=== PATIENT | female | born 1960 | race Caucasian/White ===

== ENCOUNTER 2019-04-06 13:39 | Emergency (ER) | payer OTHER, SELFPAY ==
[2019-04-06 13:40] VITALS: BP 149/81; PULSE 89; RESP 24; TEMP 36.9; O2SAT 100
--- NOTE | 2019-04-06 14:20 | ED.SOB ---
HPI - SOB/Dyspnea General Chief Complaint: Shortness of Breath/Dyspnea Stated Complaint: SHORTNESS OF BREATH AND DIZZNESS Time Seen by Provider: 04/06/19 14:17 Source: patient and family Mode of arrival: Ambulatory Limitations: no limitations History of Present Illness HPI Narrative: This is a 58-year-old female comes to the emergency department with complaint of shortness of breath. Patient states she has had symptoms intermittently for months. She states typically it is a couple minutes maybe 20 minutes at the most but today when she woke up from sleep she felt the same way and has not been having any improvement. Patient states she will often feel dizzy or lightheaded with these episodes but she has never had any syncope. She feels like she can't catch her breath or there is a spasm and she has to sit up straight to try to take a bigger breath. She states her chest will feel tight Um but that she does not have pressure. She denies any pain. She states she can sometimes get nauseated. She states she is and easy vomit are did have several episodes last week. She also states that from a GI standpoint she will alternate between constipation and diarrhea regularly. She felt her urine output was a little bit decreased. She has noticed the markings of her socks or little bit more prominent. She states she has felt tingly and numb all over in her extremities. She did have a recent drive in return 2 days ago from [place] after seeing her daughter delivered an infant prematurely and was in the NICU but is having good outcomes. She does take gabapentin and Cymbalta but states she regularly forgets to take these. Therefore fibromyalgia as well as depression patient last saw Dr. Finnegan in June of 2018 for depression and anxiety. And she states about a year ago or more she had vertigo testing because of chronic dizziness. Today she tried to set appointment with her primary care and was encouraged to come to the ER and when she tried calling the nursing hotline for her insurance they also told her to come to the ER. Related Data Home Medications Medication Instructions Recorded Confirmed [HAIR, SKIN, NAILS] 1 tab PO QDAY #0 09/09/16 07/09/18 [green tea] #0 09/09/16 07/09/18 multivitamin [Multiple Vitamins] 1 tab PO QDAY #0 09/09/16 07/09/18 denosumab 60 mg/mL subcutaneous 60 mg SUBCUT [id number] 12/21/17 07/09/18 syringe Previous Rx's Medication Instructions Recorded estradiol 0.5 gram VAGINAL 2XW #1 tube 01/12/18 gabapentin 300 mg capsule 1,200 mg PO BEDTIME #360 cap 06/22/18 duloxetine 30 mg capsule,delayed 30 mg PO DAILY #90 cap 03/28/19 release duloxetine 60 mg capsule,delayed 60 mg PO DAILY #90 cap 03/28/19 release lorazepam [Ativan] 0.5 mg PO DAILY PRN #5 tab 04/06/19 Allergies Allergy/AdvReac Type Severity Reaction Status Date / Time No Known Drug Allergies Allergy Verified 04/06/19 14:05 Review of Systems Review of Systems ROS Unobtainable: All systems reviewed & are unremarkable except as noted in HPI and below Patient History Medical History Abnormal CXR (chest x-ray) (Resolved 1999) Abnormal Pap smear of cervix (Resolved) Anemia (Resolved) Anxiety (Chronic) Bloating (Chronic) C. difficile colitis (Resolved 2014) Concussion (Resolved 11/2015) Cranial pain (Chronic) Depression (Chronic) Fractures (Resolved) Hayfever (Chronic) Kidney stones (Chronic) Leukopenia (Resolved) Measles (Resolved) Melanoma (Resolved 1994) Migraines (Chronic) Neck pain (Chronic) Vertigo (Resolved) Surgical History Anesthesia (Resolved) History of ankle surgery (Resolved 1987) History of intestinal surgery (Resolved 2014) Hx of breast implants, bilateral (Resolved) Status post appendectomy (Resolved 2013) Status post breast reduction (Resolved) Status post delivery (Resolved 1981) Status post delivery (Resolved 1989) Status post hernia repair (Resolved 2013) Status post wrist surgery (Resolved 2008) Family History Brother Age: 73 Macular degeneration Mother Diabetes mellitus Essential hypertension Cerebrovascular accident (CVA), unspecified mechanism Ovarian cancer, unspecified laterality Grandfather Heart disease Heart attack Sister Age: 74 Malignant neoplasm of female breast, unspecified laterality, unspecified site of breast Essential hypertension Sister Age: 64 Essential hypertension Father Lung cancer Grandfather No problems noted. Grandmother No problems noted. Grandmother No problems noted. Social History marital status: number of children: 2 occupational status: other (retired) Smoking Status: Never smoker alcohol intake: current (social) substance use type: does not use Smoking Status: Never smoker Substance Use Type: does not use Exam Narrative Exam Narrative: GEN: well nourished, thin female, alert and oriented x 3, patient appears to be in moderate distress. Patient appears anxious she will calm during our discussion and then become more anxious appearing and then calm again. Her shaking resolves when she is focused on our conversation. She is not diaphoretic. HEENT: Atraumatic, pupils are equal round reactive to light, extraocular movements are intact, nares are clear, Throat is clear without any exudates, erythema, tonsillar enlargement or uvular deviation HEART: Regular rate and rhythm without murmur, clicks, rubs. Pulses are equal in upper and lower extremities LUNGS:Lungs clear to auscultation, no wheezes, rales, crackles, chest moves symmetrically, tachypnea. Patient is able to speak in full sentences. ABD:bowel sounds normal, soft, non-tender, no guarding, rebound, rigidity, no masses noted, no hepatosplenomegaly :No CVA tenderness MSCL: Non-tender, no muscle atrophy, muscles strength 5/5 upper and lower extremities, full range of motion, normal gait NEURO:CN 2-12 intact, sensation normal. SKIN: No rash, no erythema or other skin changes. Initial Vital Signs Initial Vital Signs: Vital Signs Temperature 98.4 F 04/06/19 13:40 Pulse Rate 89 04/06/19 13:40 Respiratory Rate 24 04/06/19 13:40 Blood Pressure 149/81 H 04/06/19 13:40 Pulse Oximetry 100 04/06/19 13:40 Scores HEART Score Heart Score history: Slightly Suspicious Heart Score EKG: Non-Specific repolarization disturbance Heart Score Age: 45-64 years old Heart Score risk factors: No known risk factors Course Orders Ordered: ED Orders 04/06/19 13:44 EKG-12 Lead Stat Measure peak expiratory flow ONCE RT Consult Eval and Treat Now 04/06/19 14:39 XR chest 1V Stat 04/06/19 15:09 Complete Blood Count AUTO DIFF Stat Comprehensive Metabolic Panel Stat D Dimer Stat NT-proBNP (BNP-Adult 18+) Stat Partial Thromboplastin Time Stat Prothrombin Time INR Stat Thyroid Stimulating Hormone Stat Troponin & CK Cardiac Panel Stat 04/06/19 15:27 Lactate (Lactic Acid) Stat 04/06/19 18:05 Free T4, Direct Thyroxine Stat Discontinued Medications Sodium Chloride (Normal Saline 0.9%) 1,000 mls @ 1,000 mls/hr IV BOLUS ONE Stop: 04/06/19 17:41 Last Infusion: 04/06/19 18:08 Dose: 0 mls/hr Documented by: Admin: 04/06/19 16:55 Dose: 1,000 mls/hr Documented by: TUCKER Lorazepam (Ativan) 1 mg PO NOW ONE Stop: 04/06/19 14:40 Last Admin: 04/06/19 14:53 Dose: 1 mg Documented by: ANNA Potassium Chloride (Potassium Chloride) 40 meq PO NOW ONE Stop: 04/06/19 15:52 Last Admin: 04/06/19 16:34 Dose: 40 meq Documented by: ANNA Vital Signs Vital signs: Vital Signs - 8 hr 04/06/19 13:40 04/06/19 15:30 04/06/19 15:34 Temperature 98.4 F Pulse Rate 89 79 80 Respiratory Rate 24 24 19 Blood Pressure 149/81 H Blood Pressure [Right Arm] 115/90 115/90 Pulse Oximetry 100 100 100 04/06/19 16:35 04/06/19 18:09 Temperature Pulse Rate 80 70 Respiratory Rate 15 18 Blood Pressure Blood Pressure [Right Arm] 118/72 112/78 Pulse Oximetry 98 98 MDM - SOB/Dyspnea Lab Data Attestation: I reviewed the patient's lab results. Result diagrams: 04/06/19 15:09 04/06/19 15:09 Labs: Lab Results 04/06/19 04/06/19 04/06/19 Range/Units 15:09 15:09 15:09 WBC 5.0 (4.5-11.0) X10^3/uL RBC 4.33 (4.0-5.2) X10^6/uL Hgb 14.5 (12.0-16.0) g/dL Hct 41.8 (36-46) % MCV 96.6 (80-100) fL MCH 33.5 (26-34) PG MCHC 34.7 (30-36) % RDW 13.1 (11.6-14.8) % Plt Count 201 (150-400) X10^3/uL Neut % (Auto) 44.2 L (50-75) % Lymph % (Auto) 43.0 H (25-40) % [place] % (Auto) 9.6 (3-14) % Eos % (Auto) 1.9 L (2-4) % Baso % (Auto) 1.3 (0-2) % Neut # (Auto) 2200 (9641-9272) /uL Lymph # (Auto) 2100 (1317-8771) /uL [place] # (Auto) 500 (0-900) /uL Eos # (Auto) 100 (0-450) /uL Baso # (Auto) 100 (0-100) /uL PT (10.1-12.7) SECONDS INR (0.9-1.3) APTT (26.4-36.2) SECONDS D-Dimer < 200 (<230) ng/mL Sodium 143 (137-145) mmol/L Potassium 3.1 L (3.4-5.1) mmol/L Chloride 109 H (98-107) mmol/L Carbon Dioxide 26 (22-32) mmol/L BUN 14 (7-17) mg/dL Creatinine 0.80 (0.52-1.04) mg/dL Estimated GFR > 60.0 (>60) mL/min BUN/Creatinine Ratio 17.5 (6-22) Glucose 102 (80-110) mg/dL Lactate (0.7-2.1) mmol/L Calcium 11.6 H (8.4-10.2) mg/dL Total Bilirubin 0.5 (0.2-1.3) mg/dL AST 26 (14-36) IU/L ALT 14 (<35) IU/L Alkaline Phosphatase 36 L (38-126) U/L Total Creatine Kinase 54 (30-135) U/L CK-MB (CK-2) TNP CK-MB (CK-2) Rel Index TNP Troponin I < 0.012 (0.01-0.034) ng/mL NT-Pro-B Natriuret Pep 193 H (<125) pg/mL Total Protein 7.5 (6.3-8.2) g/dL Albumin 4.6 (3.5-5.0) g/dL Globulin 2.9 (1.7-4.1) g/dL Albumin/Globulin Ratio 1.6 (1.0-2.8) TSH (0.47-4.68) uIU/mL 04/06/19 04/06/19 04/06/19 Range/Units 15:09 15:09 15:27 WBC (4.5-11.0) X10^3/uL RBC (4.0-5.2) X10^6/uL Hgb (12.0-16.0) g/dL Hct (36-46) % MCV (80-100) fL MCH (26-34) PG MCHC (30-36) % RDW (11.6-14.8) % Plt Count (150-400) X10^3/uL Neut % (Auto) (50-75) % Lymph % (Auto) (25-40) % [place] % (Auto) (3-14) % Eos % (Auto) (2-4) % Baso % (Auto) (0-2) % Neut # (Auto) (4374-1116) /uL Lymph # (Auto) (1741-4526) /uL [place] # (Auto) (0-900) /uL Eos # (Auto) (0-450) /uL Baso # (Auto) (0-100) /uL PT 11.1 (10.1-12.7) SECONDS INR 1.0 (0.9-1.3) APTT 29 (26.4-36.2) SECONDS D-Dimer (<230) ng/mL Sodium (137-145) mmol/L Potassium (3.4-5.1) mmol/L Chloride (98-107) mmol/L Carbon Dioxide (22-32) mmol/L BUN (7-17) mg/dL Creatinine (0.52-1.04) mg/dL Estimated GFR (>60) mL/min BUN/Creatinine Ratio (6-22) Glucose (80-110) mg/dL Lactate 1.8 (0.7-2.1) mmol/L Calcium (8.4-10.2) mg/dL Total Bilirubin (0.2-1.3) mg/dL AST (14-36) IU/L ALT (<35) IU/L Alkaline Phosphatase (38-126) U/L Total Creatine Kinase (30-135) U/L CK-MB (CK-2) CK-MB (CK-2) Rel Index Troponin I (0.01-0.034) ng/mL NT-Pro-B Natriuret Pep (<125) pg/mL Total Protein (6.3-8.2) g/dL Albumin (3.5-5.0) g/dL Globulin (1.7-4.1) g/dL Albumin/Globulin Ratio (1.0-2.8) TSH 4.90 H (0.47-4.68) uIU/mL Imaging Data Chest x-ray: Radiologist's Impression: [address] [address] XRay Report Signed Patient: Cady Johnson#: [id number] : 9Acct:[id number] Age/Sex: 58 / FDate of Service: 04/06/19 Loc: ED Accession Number: [id number] Procedure: XR chest 1V Ordering Provider: Wendie Little D.O. PROCEDURE: XR CHEST 1V INDICATIONS: Shortness of breath, intermittent for months TECHNIQUE: One view of the chest was acquired. COMPARISON: [facility], CHEST 1 VIEW, 04/18/2017, 12:05. FINDINGS: Surgical changes and devices: None. Lungs and pleura: Lungs are clear, yet hyperexpanded. No pleural effusions or pneumothorax. Mediastinum: Mediastinal contours appear normal. Heart size is normal. Bones and chest wall: No suspicious bony lesions. A likely bone island can be seen involving the left humeral head. Mild dextroconvex scoliotic curvature is noted. Overlying soft tissues appear unremarkable. IMPRESSION: Hyperexpanded lungs, without an acute cardiopulmonary process identified. Dictated by: Víctor Hutton M.D. on 04/06/2019 at 15:28 Approved by: Víctor Hutton M.D. on 04/06/2019 at 15:29 ECG Data Attestation: I personally reviewed and interpreted this ECG as follows: Interpretation: Sinus rhythm rate 83, P are 165 QRS of 109 and QTC of 403. Nonspecific ST change. Possibly some depression V4 and V6 but not appreciated in V 5. No elevation noted. Patient has a prior EKG from 09/09/2016 which appears similar except for the changes in V4 and V5. MDM Narrative Medical decision making narrative: Discussed with patient Um suspect she may be having some anxiety but based on her she does have risk factor for cardiac causes. Examination she seems to calm during discussion and does seem is anxious. She does have a history of depression and has seen Dr. Finnegan for this in the past. EKG shows nonspecific change, chest x-ray is negative. CBC shows slightly elevated lymphocyte count but otherwise normal CBC. Coags are normal including a negative D-dimer, patient's potassium is 3.1, chlorides 109 with otherwise normal electrolytes and renal function. Calcium is 11.6. BNP is 193 with a negative troponin. TSH is elevated, T4 and PTH added on for outpatient follow up. Discharge Plan Departure Patient Disposition: Home Clinical Impression: Dyspnea, Elevated TSH Discharge Date/Time: 04/06/19 18:11 Instructions: Thyroid Stimulating Hormone Activity Restrictions/Additional Instructions: Follow up with Dr. Finnegan this week, call for an appointment. Your TSH is elevated. This may be secondary to hypothyroidism a T4 level and PTH were included on are pending for Dr. Finnegan to review. This may be related to her symptoms today or maybe a secondary finding. You may take medication as prescribed, this medication can make you sleepy do not drive, perform hazardous activities or make any major decisions while taking this medication. Prescription was sent to [facility] to the ER for fevers greater 100.4 F, altered mental status, new or worsening shortness of breath, new or changing chest pain or pressure, persistent vomiting, lightheadedness or passing out, new weakness, numbness or other new or concerning symptoms Prescriptions: New lorazepam [Ativan] 0.5 mg tablet 0.5 mg PO DAILY PRN (Reason: anxiety) Qty: 5 RF: 0 No Action multivitamin [Multiple Vitamins] 1 EACH tablet 1 tab PO QDAY Qty: 0 RF: 0 [green tea] Qty: 0 RF: 0 [HAIR, SKIN, NAILS] 1 tab PO QDAY Qty: 0 RF: 0 estradiol [Estrace] 0.01 % (0.1 mg/gram) cream 0.5 gram Vaginal 2XW Qty: 1 RF: 5 gabapentin 300 mg capsule 1,200 mg PO BEDTIME Qty: 360 RF: 3 duloxetine 60 mg capsule,delayed release(DR/EC) 60 mg PO DAILY Qty: 90 RF: 0 duloxetine 30 mg capsule,delayed release(DR/EC) 30 mg PO DAILY Qty: 90 RF: 0 denosumab [Prolia] 60 mg/mL syringe 60 mg SUBCUT [id number] RF: 0 Referrals: Mamie Finnegan DO [Primary Care Provider] -
--- NOTE | 2019-04-06 14:35 | PC.NURSE ---
Went in to assess pt and found pt to be hyperventilating w/ hand and feet in carpel pedal spasm. Engaged in controlled breathing exercises w/ pt w/ moderate effect. Provider in to evaluate. [place]/warm/dry, appears in panic. BS = clear.
--- NOTE | 2019-04-06 14:39 | DI.RAD.S_ITS ---
PROCEDURE: XR CHEST 1V INDICATIONS: Shortness of breath, intermittent for months TECHNIQUE: One view of the chest was acquired. COMPARISON: [facility], , CHEST 1 VIEW, 04/18/2017, 12:05. FINDINGS: Surgical changes and devices: None. Lungs and pleura: Lungs are clear, yet hyperexpanded. No pleural effusions or pneumothorax. Mediastinum: Mediastinal contours appear normal. Heart size is normal. Bones and chest wall: No suspicious bony lesions. A likely bone island can be seen involving the left humeral head. Mild dextroconvex scoliotic curvature is noted. Overlying soft tissues appear unremarkable. IMPRESSION: Hyperexpanded lungs, without an acute cardiopulmonary process identified. Dictated by: Víctor Hutton M.D. on 04/06/2019 at 15:28 Approved by: Víctor Hutton M.D. on 04/06/2019 at 15:29
[2019-04-06] MEDS: LORazepam 0.5 MG TABLET 1 MG PO (14:53)
[2019-04-06 15:23] LABS: Add Manual Diff / Slide Review NO; Basophils Absolute Auto 100 /uL (0-100); Basophils Percent Auto 1.3 % (0-2); Eosinophils Absolute Auto 100 /uL (0-450); Eosinophils Percent Auto 1.9 % (2-4); Hematocrit 41.8 % (36-46); Hemoglobin 14.5 g/dL (12.0-16.0); Lymphocytes Absolute Auto 2100 /uL (1100-4500); Mean Corpuscular HGB Conc 34.7 % (30-36); Mean Corpuscular Hemoglobin 33.5 PG (26-34); Mean Corpuscular Volume 96.6 fL (80-100); Monocytes Absolute Auto 500 /uL (0-900); Monocytes Percent Auto 9.6 % (3-14); Neutrophils Absolute Auto 2200 /uL (1500-7000); Neutrophils Percent Auto 44.2 % (50-75); Platelet Count 201 X10^3/uL (150-400); Red Blood Cell Count 4.33 X10^6/uL (4.0-5.2); Red Cell Distribution Width 13.1 % (11.6-14.8)
[2019-04-06 15:30] VITALS: BP 115/90; PULSE 79; RESP 24; O2SAT 100
[2019-04-06 15:33] LABS: D Dimer < 200 ng/mL (<230)
[2019-04-06 15:34] VITALS: BP 115/90; PULSE 80; RESP 19; O2SAT 100
[2019-04-06 15:34] LABS: PTT Partial Thromboplastin Tim 29 SECONDS (26.4-36.2); Prothrombin Time 11.1 SECONDS (10.1-12.7)
[2019-04-06 15:35] LABS: Alanine Aminotransferase 14 IU/L (<35); Albumin 4.6 g/dL (3.5-5.0); Albumin Globulin Ratio 1.6 (1.0-2.8); Alkaline Phosphatase 36 U/L (38-126); Aspartate Aminotransferase 26 IU/L (14-36); BUN Creatinine Ratio 17.5 (6-22); Bilirubin Total 0.5 mg/dL (0.2-1.3); Blood Urea Nitrogen 14 mg/dL (7-17); Calcium 11.6 mg/dL (8.4-10.2); Carbon Dioxide 26 mmol/L (22-32); Chloride 109 mmol/L (98-107); Creatine Kinase 54 U/L (30-135); Estimated Glomerular Filt Rate > 60.0 mL/min (>60); Globulin 2.9 g/dL (1.7-4.1); Glucose 102 mg/dL (80-110); HEMOLYSIS 24 (0-50); Potassium 3.1 mmol/L (3.4-5.1); Sodium 143 mmol/L (137-145); Total Protein 7.5 g/dL (6.3-8.2)
[2019-04-06 15:47] LABS: NT-proBNP (BNP-Adult 18+) 193 pg/mL (<125); Troponin I < 0.012 ng/mL (0.01-0.034)
[2019-04-06 15:56] LABS: Lactate (Lactic Acid) 1.8 mmol/L (0.7-2.1)
[2019-04-06] MEDS: POTASSIUM CHLORIDE 20 MEQ/15 ML UDC 40 MEQ PO (16:34)
[2019-04-06 16:35] VITALS: BP 118/72; PULSE 80; RESP 15; O2SAT 98
[2019-04-06] MEDS: SODIUM CHLORIDE 0.9% 1,000 ML 1000 ML IV (16:55)
[2019-04-06 18:09] VITALS: BP 112/78; PULSE 70; RESP 18; O2SAT 98
[2019-04-06 18:46] LABS: Free T4, Direct Thyroxine 0.88 ng/dL (0.78-2.19)
[2019-04-09 13:33] LABS: Parathyroid Hormone Int 11 pg/mL (14-64)
== END 2019-04-06 18:11 | disposition home or self-care (01) ==
PROVIDERS: Emergency Provider Emergency Medicine; PCP Family Medicine
DX: R06.00 Dyspnea, unspecified (principal); R79.89 Other specified abnormal findings of blood chemistry
CPT/HCPCS: 36415; 71045; 80053; 82550; 83605; 83880; 83970; 84439; 84443; 84484; 85025; 85379; 85610; 85730; 93005; 96360; 99285

== ENCOUNTER → 2019-04-13 13:16 | Outpatient (CLI) | payer OTHER, SELFPAY | PROVIDERS: PCP Family Medicine; Referring Provider Internal Medicine Endocrinology, Diabetes & Metabolism; Visit Provider Internal Medicine Endocrinology, Diabetes & Metabolism | DX: M81.0 Age-related osteoporosis without current pathological fracture (principal); Z78.0 Asymptomatic menopausal state; Z82.62 Family history of osteoporosis | CPT/HCPCS: 77080; 77081 ==

== ENCOUNTER → 2019-10-12 15:08 | Outpatient (CLI) | payer OTHER, SELFPAY ==
--- NOTE | 2019-10-12 15:08 | DI.ECHO.S_ITS ---
[facility] [place] +---------+ [facility] +---------+ : : [address] : : : : [id number] : : : : Phone: [phone] Echocardiogram Report + + :Name: DARCY BENITEZ Study Date: 10/12/2019 Height: 69 in : :[facility] Weight: 138 lb : : Gender: Female BSA: 1.8 m2 : :: 1960 Age: 58 yrs BP: 124/91 mmHg: :Reason For Study: CHRONIC SOB, LE EDEMA : : Performed By: Coleen Smith : :Referring: HAROLDO BARRERA : + + Interpretation Summary Left ventricular systolic function appears to be low normal with an estimated ejection fraction of 50-55% without any obvious focal wall motion abnormality. Global longitudinal strain is borderline abnormal at -17, which can be an indicator of subtle systolic dysfunction. Diastolic function appears to be normal with normal filling pressures. The right ventricle appears normal. Right ventricular systolic pressure is estimated at 18 mmHg with a estimated CVP of 3 mmHg. Both atria are normal in size. There is mild tricuspid regurgitation but no other significant valvular abnormality. The ascending aorta is mildly enlarged. Procedure: A two-dimensional transthoracic echocardiogram with color flow and Doppler was performed. The study quality was technically good. Images from the parasternal window were difficult to obtain and are suboptimal in quality. Parasternal windows are limited because of breast augmentation. The patient was in normal sinus rhythm during the exam. Left Ventricle: The left ventricle is normal in size and wall thickness. Left ventricular systolic function is low normal. The ejection fraction is estimated to be 50-55%. Left ventricular global longitudinal strain average is borderline abnormal (normal being more negative than -20%). Left ventricular global longitudinal strain average is abnormal at -17.2% (normal being more negative than -20%). There are no focal wall motion abnormalities. Diastolic parameters suggest probable normal left ventricular diastolic function and normal filling pressures. Right Ventricle: The right ventricle is normal in size and function. Atria: Both atria are normal in size. There is no Doppler evidence for an interatrial shunt. Mitral Valve: The mitral valve is normal in structure and function. There is trace mitral regurgitation. Aortic Valve: The aortic valve is not well visualized. The aortic valve is grossly normal. The aortic valve opens well. There is no aortic valve stenosis. No aortic regurgitation is present. Tricuspid Valve: The tricuspid valve is normal in structure and function. There is mild tricuspid regurgitation. The right ventricular systolic pressure is estimated to be at least 18 mmHg based on an estimated right atrial pressure of 3 mm Hg. Pulmonic Valve: The pulmonic valve is not well seen, but is grossly normal. There is no pulmonic valvular regurgitation. There is no other significant valvular heart disease. Great Vessels: The aortic root is normal size. The ascending aorta is mildly enlarged. The IVC is of normal diameter and collapses greater than 50% with a sniff. This suggests a low right atrial pressure of 3 mm Hg. Pericardium/ Pleura There is no pericardial effusion. There is no pleural effusion. MMode/2D Measurements & Calculations LVIDd: 4.3 cm LVOT diam: 2.3 cm LVIDs: 3.1 cm Ao root diam: 2.9 cm FS: 28.6 % asc Aorta Diam: 3.8 cm IVSd: 0.77 cm Ao Arch Diam (Prox Trans): 3.2 cm LVPWd: 0.74 cm LV wray. diameter/BSA (cm/m^2): 2.4 LV sys. diameter/BSA (cm/m^2): 1.7 LA A2 area: 15.0 cm2 RA long axis: 4.9 cm LA A4 area: 15.9 cm2 RA area: 16.5 cm2 LA length (vol): 4.5 cm RA vol: 46.7 ml LA vol: 45.1 ml RA : 26.5 ml/m2 LA vol index: 25.5 ml/m2 IVC diam: 1.6 cm RVD1 (basal): 2.9 cm TAPSE: 2.0 cm Doppler Measurements & Calculations Ao V2 max: 108.5 cm/sec LVOT Max Hermann: 90.9 cm/sec Ao V2 mean: 77.5 cm/sec LV V1 max P.3 mmHg Ao max P.7 mmHg LV V1 VTI: 16.6 cm Ao mean P.7 mmHg BOB(I,D): 3.0 cm2 Ao V2 VTI: 22.3 cm BOB(V,D): 3.4 cm2 sev ratio: 0.74 BOB indexed to BSA (cm^2/m^2): 1.7 MV E max hermann: 46.1 cm/sec TR max hermann: 195.4 cm/sec MV A max hermann: 44.3 cm/sec TR max P.3 mmHg MV E/A: 1.0 PA V2 max: 58.7 cm/sec Med Peak E' Hermann: 5.4 cm/sec PA V2 mean: 41.7 cm/sec E/E' med: 8.6 PA mean P.75 mmHg Lat Peak E' Hermann: 6.0 cm/sec PA pr(Accel): 22.5 mmHg E/E' lat: 7.7 E/e' average: 8.1 MV dec time: 0.25 sec SV(LVOT): 66.8 ml Reading Physician:05:17 PM
== END ==
PROVIDERS: PCP Family Medicine; Referring Provider Family Medicine; Visit Provider Family Medicine
DX: I07.1 Rheumatic tricuspid insufficiency (principal); I77.89 Other specified disorders of arteries and arterioles; R06.02 Shortness of breath; R60.0 Localized edema; R06.00 Dyspnea, unspecified
CPT/HCPCS: 93306

== ENCOUNTER → 2021-07-17 08:03 | Outpatient (CLI) | payer OTHER, SELFPAY ==
[2021-07-17 09:31] LABS: Albumin 4.6 g/dL (3.5-5.0); BUN Creatinine Ratio 32.9 (6-22); Blood Urea Nitrogen 24 mg/dL (7-17); Calcium 10.3 mg/dL (8.4-10.2); Carbon Dioxide 32 mmol/L (22-32); Chloride 99 mmol/L (98-107); Estimated Glomerular Filt Rate > 60 mL/min (>60); Glucose 87 mg/dL (80-110); HEMOLYSIS 16 (0-50); Phosphorous 3.1 mg/dL (2.8-4.1); Potassium 3.7 mmol/L (3.4-5.1); Sodium 136 mmol/L (137-145)
[2021-07-17 09:49] LABS: Vitamin D 25 Hydroxy (D3) 43.9 ng/mL (30.0-100.0)
[2021-07-17 10:03] LABS: TSH w/ Reflex to FT4 2.86 uIU/mL (0.47-4.68)
[2021-07-20 10:26] LABS: Parathyroid Hormone Int 54 pg/mL (15-65)
[2021-07-22 01:17] LABS: C-Telopeptide, Serum 470 pg/mL (.)
== END ==
PROVIDERS: PCP Family Medicine; Referring Provider Internal Medicine Endocrinology, Diabetes & Metabolism; Visit Provider Internal Medicine Endocrinology, Diabetes & Metabolism
DX: M81.0 Age-related osteoporosis without current pathological fracture (principal); E83.52 Hypercalcemia; E55.9 Vitamin D deficiency, unspecified
CPT/HCPCS: 36415; 80069; 82306; 82523; 83970; 84443

== ENCOUNTER → 2021-09-27 11:04 | Outpatient (CLI) | payer OTHER, SELFPAY ==
--- NOTE | 2021-09-27 11:05 | DI.RAD.S_ITS ---
PROCEDURE: XR THORACIC SPINE 3V INDICATIONS: back pain, severe osteoporosis TECHNIQUE: 3 views of the thoracic spine were acquired. COMPARISON: None. FINDINGS: Bones: Generalized decrease in osseous mineralization noted. T7 and T9 wedge-shaped compression fractures noted, uncertain age. No evidence of retropulsed fracture fragment. Soft tissues: No paravertebral stripe thickening. IMPRESSION: T7 and T9 wedge-shaped compression fractures, uncertain age. Osteopenia Approved by: Peng Soto M.D. on 09/27/2021 at 17:48
--- NOTE | 2021-09-27 11:27 | DI.RAD.S_ITS ---
PROCEDURE: XR LUMBAR SPINE 2-3V INDICATIONS: BACK PAIN TECHNIQUE: 3 views of the lumbar spine were acquired. COMPARISON: [facility], CT, KIDNEY/ URETER/BLADDER, 04/18/2017, 12:31. FINDINGS: Bones: 5 lumbar type vertebral bodies present. There is an L3 wedge-shaped compression fracture with 30% anterior height loss, new from the prior exam. No retropulsed fracture fragment. Disc space narrowing at L5-S1. Sclerotic facet joints noted in the lower lumbar spine. Soft tissues: Overlying bowel gas pattern is normal. No suspicious soft tissue calcifications. Rounded calcifications in the right upper quadrant noted. IMPRESSION: 1. L3 compression fracture, uncertain age, but nevertheless new from 2018. 2. Multilevel degenerative disc disease and facet arthropathy in the lower lumbar spine Approved by: Peng Soto M.D. on 09/27/2021 at 17:24
== END ==
PROVIDERS: PCP Family Medicine; Referring Provider Family Medicine; Visit Provider Family Medicine
DX: M48.54XA Collapsed vertebra, not elsewhere classified, thoracic region, initial encounter for fracture (principal); M48.56XA Collapsed vertebra, not elsewhere classified, lumbar region, initial encounter for fracture; M51.36 Other intervertebral disc degeneration, lumbar region; M47.816 Spondylosis without myelopathy or radiculopathy, lumbar region; M81.0 Age-related osteoporosis without current pathological fracture; M54.50 Low back pain, unspecified
CPT/HCPCS: 72072; 72100

== ENCOUNTER → 2022-05-23 14:03 | Outpatient (CLI) | payer OTHER, SELFPAY ==
--- NOTE | 2022-05-23 14:09 | DI.RAD.S_ITS ---
PROCEDURE: XR SACRUM COCCYX MIN 2V INDICATIONS: left sacrum pain TECHNIQUE: 3 views of the sacrum and coccyx acquired. COMPARISON: None. FINDINGS: Bones: No fractures or dislocations. No suspicious bony lesions. Soft tissues: Visualized bowel gas pattern is normal. No suspicious soft tissue densities. IMPRESSION: Negative sacral/coccygeal radiographic series. Dictated by: Jim Schmitt M.D. on 05/23/2022 at 16:30 Approved by: Jim Schmitt M.D. on 05/23/2022 at 16:31
--- NOTE | 2022-05-23 14:09 | DI.RAD.S_ITS ---
PROCEDURE: XR HIP W PEL IF DONE LT 2V INDICATIONS: left sacrum pain TECHNIQUE: AP pelvis with lateral view(s) of the left hip(s). COMPARISON: None. FINDINGS: Bones: No acute fractures or dislocations. Pelvic ring appears intact. No suspicious bony lesions. Degenerative changes of the bilateral hips. Lower lumbar spondylosis. Soft tissues: The visualized bowel gas pattern is normal. No suspicious soft tissue calcifications. IMPRESSION: Left hip without acute fracture or dislocation. Bilateral hip degenerative change. Dictated by: iJm Schmitt M.D. on 05/23/2022 at 16:29 Approved by: Jim Schmitt M.D. on 05/23/2022 at 16:30
== END ==
PROVIDERS: PCP Family Medicine; Referring Provider Family Medicine; Visit Provider Family Medicine
DX: M25.552 Pain in left hip (principal); M53.3 Sacrococcygeal disorders, not elsewhere classified
CPT/HCPCS: 72220; 73502

== ENCOUNTER → 2022-05-23 14:04 | Outpatient (CLI) | payer OTHER, SELFPAY ==
--- NOTE | 2022-05-23 14:07 | DI.RAD.S_ITS ---
Bone Density Report Name: DARCY BENITEZ Age: 61 Sex: Female Ethnicity: White Date of : 1960 Indication: postmenopausal osteoporosis; prior fracture; Referring Provider: HAROLDO BARRERA Study: Bone densitometry was performed. Exam Date: May 23, 2022 Accession number: [id number] Bone Density: Region BMD T-score Z-score Classification AP Spine(L1-L4) 0.715 -3.0 -1.4 Osteoporosis Femoral Neck (Left) 0.516 -3.0 -1.6 Osteoporosis Total Hip (Left) 0.567 -3.1 -1.9 Osteoporosis Femoral Neck (Right) 0.509 -3.1 -1.6 Osteoporosis Total Hip (Right) 0.558 -3.1 -2.0 Osteoporosis Total Hip Mean 0.563 -3.1 -2.0 Osteoporosis World Health Organization criteria for BMD impression classify patients as: Normal (T-score at or above -1.0), Osteopenia (T-score between -1.0 and -2.5), or Osteoporosis (T-score at or below -2.5). 10-year Fracture Risk: FRAX not reported because: Some T-score for Spine Total or Hip Total or Femoral Neck at or below -2.5 Prior hip or vertebral fracture Previous Exams: -- Region Exam Age BMD T-score BMD Change BMD Change Date g/cm2 vs Baseline vs Previous -- AP Spine (L1-L4) 05/23/2022 61 0.715 -3.0 0.073 (11.4%)# 0.073 (11.4%)# 04/13/2019 58 0.642 -3.7 Total Hip(Left) 05/23/2022 61 0.567 -3.1 0.060 (11.8%)# 0.060 (11.8%)# 04/13/2019 58 0.507 -3.6 Total Hip(Right) 05/23/2022 61 0.558 -3.1 0.049 (9.7%)# 0.049 (9.7%)# 04/13/2019 58 0.509 -3.6 -- *Denotes significance at 95% confidence level, LSC for AP Spine = 0.022 g/cm2, LSC for Total Hip = 0.027 g/cm2 # Denotes dissimilar scan types or analysis methods Impression: The patient has established osteoporosis, based on the Left Total Hip T-score and the existence of a prior fracture. The patient has risk factors, including: previous fracture. No significant bone loss was observed. Discussion: HIGH RISK OF FRACTURE. BONE DENSITY IS UNDESIRABLY LOW AT ONE OR MORE SKELETAL SITES, CONSISTENT WITH POSTMENOPAUSAL OSTEOPOROSIS. This patient's lowest T-score, in a patient who has previously fractured, meets the World Health Organization's (WHO) criteria for severe osteoporosis. In untreated patients, the risk of osteoporotic fracture increases approximately two-fold for each 1.0 SD decrease in T-score. Low bone density is not the only risk factor for fracture; also consider factors such as patient's age, frailty or poor health, risk of falling, risk of injury, previous osteoporotic fracture, family history of osteoporosis, cigarette smoking, low body weight, etc. Not everyone with low bone mineral density has osteoporosis; osteomalacia and other metabolic bone disorders should also be considered. Patients who have osteoporosis should be evaluated for specific diseases and conditions (secondary causes) that may cause or contribute to bone loss. The [place] [employer] (AACE) and National Osteoporosis Foundation (NOF) recommend pharmacologic intervention for all postmenopausal women with a previous hip or vertebral fracture and a T-score in this range. The patient should follow a healthful lifestyle (good nutrition with adequate calcium and vitamin D, and appropriate weight-bearing exercise). Follow-Up: Consider a repeat BMD and Vertebral Fracture Assessment (VFA) exam in 2 years or sooner if medically necessary, to reassess this patient's status. Reported by: UMAIR KEEN M.D. on 05/23/2022 2:46:00 PM.
[2022-05-23 16:02] LABS: Alanine Aminotransferase 20 IU/L (<35); Albumin 3.9 g/dL (3.5-5.0); Albumin Globulin Ratio 1.6 (1.0-2.8); Alkaline Phosphatase 36 U/L (38-126); Aspartate Aminotransferase 25 IU/L (14-36); BUN Creatinine Ratio 16.4 (6-22); Bilirubin Total 0.3 mg/dL (0.2-1.3); Blood Urea Nitrogen 10 mg/dL (7-17); Calcium 9.8 mg/dL (8.4-10.2); Carbon Dioxide 32 mmol/L (22-32); Chloride 105 mmol/L (98-107); Estimated Glomerular Filt Rate > 60 mL/min (>60); Globulin 2.4 g/dL (1.7-4.1); Glucose 92 mg/dL (80-110); HEMOLYSIS < 15 (0-50); Potassium 4.4 mmol/L (3.4-5.1); Sodium 141 mmol/L (137-145); Total Protein 6.3 g/dL (6.3-8.2)
== END ==
PROVIDERS: PCP Family Medicine; Referring Provider Internal Medicine Endocrinology, Diabetes & Metabolism; Visit Provider Internal Medicine Endocrinology, Diabetes & Metabolism
DX: M81.0 Age-related osteoporosis without current pathological fracture (principal); M25.552 Pain in left hip; M53.3 Sacrococcygeal disorders, not elsewhere classified
CPT/HCPCS: 36415; 72220; 73502; 77080; 80053

== ENCOUNTER → 2023-09-04 15:20 | Outpatient (CLI) | payer OTHER, SELFPAY ==
[2023-09-04 16:18] LABS: BUN Creatinine Ratio 11.2 (6-22); Blood Urea Nitrogen 10 mg/dL (7-17); Carbon Dioxide 32 mmol/L (22-32); Chloride 107 mmol/L (98-107); Estimated Glomerular Filt Rate > 60 mL/min (>60); Glucose 106 mg/dL (80-110); HEMOLYSIS < 15 (0-50); Potassium 3.9 mmol/L (3.4-5.1); Sodium 142 mmol/L (137-145)
[2023-09-04 16:36] LABS: Vitamin D 25 Hydroxy (D3) 34.7 ng/mL (30.0-100.0)
== END ==
LOC: LAB 15:23
PROVIDERS: PCP Family Medicine; Referring Provider Internal Medicine Endocrinology, Diabetes & Metabolism; Visit Provider Internal Medicine Endocrinology, Diabetes & Metabolism
DX: M81.0 Age-related osteoporosis without current pathological fracture (principal)
CPT/HCPCS: 36415; 80048; 82306; 83970

== ENCOUNTER → 2023-09-10 09:19 | Outpatient (CLI) | payer OTHER, SELFPAY ==
--- NOTE | 2023-09-10 09:21 | DI.US.S_ITS ---
PROCEDURE: US ABDOMEN COMPLETE INDICATIONS: abd pain , diarrhea TECHNIQUE: Real-time scanning was performed of the abdominal and retroperitoneal organs, with image documentation. COMPARISON: None. FINDINGS: Liver: Liver is normal in size and homogeneous in echotexture. Question very mild diffuse hepatic steatosis. Gallbladder: Unremarkable without stones. Biliary ducts: Intrahepatic bile ducts are non-dilated. Extrahepatic bile duct caliber measures 5.0 mm. Normal is 6-7 mm or less in diameter, or 10 mm or less post-cholecystectomy. Pancreas: Visualized portions of the pancreas are sonographically normal. Spleen: Spleen is normal in size and homogeneous in echotexture. Kidneys: Kidneys are normal in size and echotexture. Right kidney measures 11.2 cm long; left kidney measures 9.9 cm long. No hydronephrosis. Bilateral nonobstructing renal stones.. No solid masses. Aorta: Visualized aorta is normal in caliber at less than 3 cm. Iliacs: Proximal common iliac arteries are normal in caliber at less than 2.5 cm. IVC: Intrahepatic inferior vena cava is patent. Miscellaneous: No free abdominal fluid. IMPRESSION: 1. Bilateral renal stones. 2. No hydronephrosis. 3. Question very mild diffuse hepatic steatosis. Dictated by: Grover Nogueira M.D. on 09/10/2023 at 10:19 Approved by: Grover Nogueira M.D. on 09/10/2023 at 10:22
== END ==
LOC: US 09:20
PROVIDERS: PCP Family Medicine; Referring Provider Family Medicine; Visit Provider Family Medicine
DX: N20.0 Calculus of kidney (principal); R10.9 Unspecified abdominal pain; R19.7 Diarrhea, unspecified
CPT/HCPCS: 76700

== ENCOUNTER → 2024-03-09 10:22 | Outpatient (CLI) | payer MEDICARE, SELFPAY ==
[2024-03-09 11:59] LABS: BUN Creatinine Ratio 20.6 (6-22); Blood Urea Nitrogen 13 mg/dL (7-17); Carbon Dioxide 28 mmol/L (22-32); Chloride 105 mmol/L (98-107); Estimated Glomerular Filt Rate > 60 mL/min (>60); Glucose 85 mg/dL (80-110); HEMOLYSIS < 15 (0-50); Potassium 4.3 mmol/L (3.4-5.1); Sodium 135 mmol/L (137-145)
[2024-03-09 11:59] LABS: Alanine Aminotransferase 22 IU/L (<35); Albumin 3.9 g/dL (3.5-5.0); Albumin Globulin Ratio 1.9 (1.0-2.8); Alkaline Phosphatase 47 U/L (38-126); Aspartate Aminotransferase 29 IU/L (14-36); BUN Creatinine Ratio 21.3 (6-22); Bilirubin Total 0.6 mg/dL (0.2-1.3); Blood Urea Nitrogen 13 mg/dL (7-17); Calcium 10.1 mg/dL (8.4-10.2); Carbon Dioxide 28 mmol/L (22-32); Chloride 105 mmol/L (98-107); Estimated Glomerular Filt Rate > 60 mL/min (>60); Globulin 2.1 g/dL (1.7-4.1); Glucose 85 mg/dL (80-110); HEMOLYSIS < 15 (0-50); Potassium 4.2 mmol/L (3.4-5.1); Sodium 136 mmol/L (137-145)
[2024-03-09 12:26] LABS: Add Manual Diff / Slide Review NO; Basophils Absolute Auto 0 /uL (0-100); Eosinophils Absolute Auto 100 /uL (0-450); Eosinophils Percent Auto 1.9 % (2-4); Hemoglobin 14.4 g/dL (12.0-16.0); Lymphocytes Absolute Auto 1400 /uL (1100-4500); Mean Corpuscular HGB Conc 33.4 % (30-36); Mean Corpuscular Hemoglobin 32.3 PG (26-34); Mean Corpuscular Volume 96.9 fL (80-100); Monocytes Absolute Auto 400 /uL (0-900); Neutrophils Absolute Auto 1700 /uL (1500-7000); Neutrophils Percent Auto 47.1 % (50-75); Platelet Count 168 X10^3/uL (150-400); Red Blood Cell Count 4.44 X10^6/uL (4.0-5.2); Red Cell Distribution Width 13.1 % (11.6-14.8); White Blood Cell Count 3.5 X10^3/uL (4.5-11.0)
[2024-03-09 13:26] LABS: TSH w/ Reflex to FT4 2.57 uIU/mL (0.47-4.68)
[2024-03-09 15:12] LABS: Vitamin D 25 Hydroxy (D3) 28.8 ng/mL (30.0-100.0)
[2024-03-10 10:22] LABS: Calcium 9.9 mg/dL (8.7-10.3); Parathyroid Hormone, Intact 54 pg/mL (15-65)
== END ==
LOC: LAB 10:26
PROVIDERS: PCP Family Medicine; Referring Provider Internal Medicine Endocrinology, Diabetes & Metabolism; Visit Provider Internal Medicine Endocrinology, Diabetes & Metabolism
DX: I45.10 Unspecified right bundle-branch block (principal); F41.1 Generalized anxiety disorder; M81.0 Age-related osteoporosis without current pathological fracture; R42 Dizziness and giddiness; E83.52 Hypercalcemia
CPT/HCPCS: 36415; 80048; 80053; 82306; 82310; 83970; 84443; 85025

== ENCOUNTER → 2024-08-19 11:14 | Outpatient (CLI) | payer MEDICARE, SELFPAY ==
--- NOTE | 2024-08-19 11:18 | DI.RAD.S_ITS ---
PROCEDURE: XR PELVIS 1-2V INDICATIONS: back pain TECHNIQUE: Single view(s) of the pelvis acquired. COMPARISON: None. FINDINGS: Bones: No fractures or dislocations. Mild axial femoroacetabular joint space loss right greater than left. Femoral heads remains spherical. Sacroiliac joints are intact. No suspicious bony lesions. Soft tissues: Visualized bowel gas pattern is normal. No suspicious soft tissue calcifications. IMPRESSION: Slight axial femoral acetabular joint space loss, mainly on the right. Dictated by: Sharron Hein M.D. on 08/19/2024 at 18:00 Approved by: Sharron Hein M.D. on 08/19/2024 at 18:01
--- NOTE | 2024-08-19 11:18 | DI.RAD.S_ITS ---
PROCEDURE: XR LUMBAR SPINE 2-3V INDICATIONS: back pain TECHNIQUE: Three views of the lumbar spine were acquired. COMPARISON: [facility], CR, XR LUMBAR SPINE 2-3V, 09/27/2021, 11:28. FINDINGS: Bones: Five [id number] vertebrae are present. Minimally progressed grade 1 anterolisthesis L2 on three. Chronic L3 mild anterior wedge compression fracture. Slight progression of L4 and L5 vertebral body height loss. No vertebral body compression fractures. No suspicious bony lesions. Soft tissues: Overlying bowel gas pattern is normal. No suspicious soft tissue calcifications. Right mid abdominal soft tissue calcifications may signify gallstones, less likely renal calculi. IMPRESSION: Mild progression of L2-3 anterolisthesis since the prior exam. Progression of L4 and possibly L5 vertebral body height loss. Chronic L3 compression fracture. Dictated by: Sharron Hein M.D. on 08/19/2024 at 17:58 Approved by: Sharron Hein M.D. on 08/19/2024 at 18:00
== END ==
PROVIDERS: PCP Family Medicine; Referring Provider Family Medicine; Visit Provider Family Medicine
DX: M43.16 Spondylolisthesis, lumbar region (principal); M48.56XA Collapsed vertebra, not elsewhere classified, lumbar region, initial encounter for fracture; M81.8 Other osteoporosis without current pathological fracture; M54.50 Low back pain, unspecified
CPT/HCPCS: 72100; 72170

== ENCOUNTER → 2024-09-16 13:52 | Outpatient (CLI) | payer MEDICARE, SELFPAY ==
[2024-09-16 14:31] LABS: Hematocrit 42.0 % (36-46); Hemoglobin 13.8 g/dL (12.0-16.0); Mean Corpuscular HGB Conc 33.0 % (30-36); Mean Corpuscular Hemoglobin 31.8 PG (26-34); Mean Corpuscular Volume 96.5 fL (80-100); Platelet Count 183 X10^3/uL (150-400)
[2024-09-16 14:51] LABS: Blood Urea Nitrogen 16 mg/dL (7-17); Calcium 10.9 mg/dL (8.4-10.2); Carbon Dioxide 30 mmol/L (22-32); Chloride 104 mmol/L (98-107); Estimated Glomerular Filt Rate > 60 mL/min (>60); Glucose 99 mg/dL (70-99); HEMOLYSIS < 15 (0-50); Potassium 5.3 mmol/L (3.4-5.1); Sodium 138 mmol/L (137-145)
[2024-09-16 15:10] LABS: Vitamin D 25 Hydroxy (D3) 46.1 ng/mL (30.0-100.0)
== END ==
PROVIDERS: PCP Family Medicine; Referring Provider Internal Medicine Endocrinology, Diabetes & Metabolism; Visit Provider Internal Medicine Endocrinology, Diabetes & Metabolism
DX: D70.9 Neutropenia, unspecified (principal); E55.9 Vitamin D deficiency, unspecified; M81.0 Age-related osteoporosis without current pathological fracture
CPT/HCPCS: 36415; 80048; 82306; 85027

== ENCOUNTER → 2024-09-22 13:15 | Outpatient (CLI) | payer MEDICARE, SELFPAY ==
--- NOTE | 2024-09-22 13:19 | DI.RAD.S_ITS ---
PROCEDURE: XR DEXA AXIAL SKELETON INDICATIONS: Osteoporosis monitoring COMPARISON: [facility], CR, XR DEXA AXIAL SKELETON, 05/23/2022, 14:33. FINDINGS: Lumbar Spine: Bone mineral density 0.714 g/cm2, T score -3.0, unchanged. Left Femoral Neck: Bone mineral density 0.483 g/cm2, T score -3.3, compared to -3.0. Left Hip: Bone mineral density 0.540 g/cm2, T score -3.3, compared to -3.1. Fracture Risk Calculation (when applicable): 10-year fracture risk of a major osteoporotic fracture 26 percent and of a hip fracture 8.6 percent. (T score greater or equal to -1.0 to: NORMAL) (T score from -1.1 to -2.4: OSTEOPENIA) (T score less than or equal to -2.5: OSTEOPOROSIS) IMPRESSION: Progressive bone mineral density loss with diffuse osteoporosis. There is been approximate 5% left hip bone mineral density loss with 7% in the femoral neck. Follow-up guidelines as follows: Osteoporosis: Consider a repeat DEXA and Vertebral Fracture Assessment (VFA) exam in 2 years or sooner if medically necessary, to reassess this patient's status. Osteopenia: Consider a repeat DEXA in 2-3 years to reassess this patient's status, or if there is a new clinical indication. Normal: Consider a repeat DEXA in 5 years or sooner, or if there is a new clinical indication. All treatment decisions require clinical judgment and consideration of individual patient factors, including patient preferences, comorbidities, previous drug use, risk factors not captured in the FRAX model (e.g., frailty, falls, vitamin D deficiency, increased bone turnover, interval significant decline in bone density ) and possible under- or over-estimation of fracture risk by FRAX. In addition, the NOF Guide recommends that FDA-approved medical therapies be considered in postmenopausal women and men age >= 50 years with a: * Hip or vertebral (clinical or morphometric) fracture * T-score of <=-2.5 at the spine or hip * Ten-year fracture probability by FRAX of >= 3% for hip fracture or >=20% for major osteoporotic fracture. Dictated by: Corry Bennett M.D. on 09/22/2024 at 20:04 Approved by: Corry Bennett M.D. on 09/22/2024 at 20:05
[2024-09-22 15:02] LABS: Blood Urea Nitrogen 14 mg/dL (7-17); Calcium 10.0 mg/dL (8.4-10.2); Carbon Dioxide 30 mmol/L (22-32); Chloride 106 mmol/L (98-107); Estimated Glomerular Filt Rate > 60 mL/min (>60); Glucose 97 mg/dL (70-99); HEMOLYSIS < 15 (0-50); Potassium 3.9 mmol/L (3.4-5.1); Sodium 141 mmol/L (137-145)
== END ==
PROVIDERS: Internal Medicine Endocrinology, Diabetes & Metabolism; PCP Family Medicine; Referring Provider Family Medicine; Visit Provider Family Medicine
DX: M81.0 Age-related osteoporosis without current pathological fracture (principal); E83.52 Hypercalcemia; E87.5 Hyperkalemia
CPT/HCPCS: 36415; 77080; 80048